=== PATIENT | female | born 1960 | race Caucasian/White ===

== ENCOUNTER → 2016-12-20 | Outpatient (CLI) | payer BC ==
--- NOTE | ~2016-12-20 | MR164 ---
[facility] A Service of [facility] RADIOLOGY TEXT RESULTS PATIENT: CHOLO JENSEN LOCATION: [facility] : 60 UNIT #: [id number] AGE: [address]: Peggy Nuñez MD SEX: F ORDER DR: [id number] [address] [address] [id number] MR#: [id number] #: [id number] NAME: CHOLO JENSEN : 1960 SEX: F STUDY DATE/TIME: 12/20/2016 15:38 UNIT: [facility] ROOM: STUDY DESCRIPTION: MR Shoulder Wo Contrast Lt Attending Physician: Peggy Nuñez M.D. Referring Physician: Peggy Nuñez M.D. Ordering Physician: Peggy Nuñez M.D. Primary Care Physician: Peggy Nuñez M.D. MRI CENTER REPORT This report is preliminary unless electronic signature is present. EXAM MRI left shoulder without contrast HISTORY 56-year-old female fell 3 to 4 weeks ago. Increasing pain, decreased range of motion. Clinical concern for rotator cuff tear. FINDINGS Multiplanar multiecho imaging was performed of the left shoulder utilizing a high field magnet and dedicated protocol. Study is severely limited due to patient body habitus. The humeral head is located. There is a moderate glenohumeral joint effusion with increased heterogeneous signal within the fluid suggesting synovitis. There is marrow edema along the anterior inferior glenoid with abnormal appearance of the anteroinferior labrum and glenoid margin raising the concern for possible labral tear. There is subtle flattening of the posterior humeral head which could represent a small Hill-Sachs impaction fracture. AC joint unremarkable. There is moderate supraspinatus and infraspinatus tendinopathy with a intrasubstance or interstitial tear at the footplate insertion of the supraspinatus tendon measuring at least 7 x 12 mm. No definite communication of the bursal articular surface identified. Teres minor tendon appears intact. The subscapularis tendon appears intact. Superior labrum biceps anchor appears intact. The long tendon biceps appears intact but suggest tendinopathy though this may in part be artifactual due to positioning. The deltoid demonstrates some muscle edema suggesting a contusion. The remaining extraarticular soft tissues unremarkable. IMPRESSION 1. Technically challenging MRI of the shoulder due to the patient's body habitus. [facility] A Service of [facility] RADIOLOGY TEXT RESULTS PATIENT: CHOLO JENSEN LOCATION: [facility] : 60 UNIT #: [id number] AGE: [address]: Peggy Nuñez MD SEX: F ORDER DR: 2. Moderate supraspinatus and infraspinatus tendinopathy with a 7 x 12 mm interstitial tear footplate insertion supraspinatus tendon. 3. Findings concerning for recent anterior shoulder dislocation with marrow edema along the anterior inferior glenoid which may represent a bone contusion as well as poor definition of the anteroinferior labrum concerning for a labral tear or Bankart lesion. 4. No definite Hill-Sachs lesion identified though there is some flattening and deformity along the posterior superior humeral head but a discrete Hill-Sachs impaction fracture not clearly seen. 5. Complex joint effusion. Dictated by... Eze Velasquez M.D. THIS IS AN ELECTRONICALLY VERIFIED REPORT Eze Velasquez M.D. at 12/22/2016 7:30 AM GUNNER/herlinda TD: 12/21/2016 09:11 JOB #: [id number] MRI CENTER REPORT Page 1 of 1
== END | disposition home or self-care (01) ==
LOC: SMRI 15:16
DX: M75.102 Unspecified rotator cuff tear or rupture of left shoulder, not specified as traumatic (principal); M75.82 Other shoulder lesions, left shoulder; M25.412 Effusion, left shoulder
CPT/HCPCS: 73221